=== PATIENT | male | born 1950 | race Native Hawaiian/Other Pacific Islander ===

== ENCOUNTER 2018-08-24 21:50 | Inpatient (IN) | payer OTHER, MEDICARE ==
[2018-08-24 21:50] VITALS: BMI 18.0
[2018-08-24] MEDS ORDERED: Sodium Chloride 0.9% 1,000 ML IV SCH (22:30)
[2018-08-24 22:40] LABS: BASO % 0.5 % (0.0-2.0); EOS % 0.8 % (0.0-4.0); HEMOGLOBIN 13.6 g/dL (12.0-18.0); LYMPH % 18.9 % (20.0-40.0); MEAN CELL VOLUME 93.5 fL (80.0-94.0); MEAN CORPUSCULAR HEMOGLOBIN 30.9 pg (27.0-31.0); MEAN CORPUSCULAR HGB CONC 33.1 g/dL (33.0-37.0); MEAN PLATELET VOLUME 7.4 fL (7.2-11.7); MONO # 0.5 K/uL (0.0-0.8); MONO % 8.7 % (0.0-10.0); NEUT # 3.9 K/uL (1.8-7.0); NEUT % 71.1 % (50.0-75.0); RBC 4.42 Mil/uL (4.40-5.90); RED CELL DISTRIBUTION WIDTH 13.1 % (11.5-14.5); WHITE BLOOD COUNT 5.5 K/uL (4.8-10.8)
[2018-08-24 22:48] LABS: PROTHROMBIN TIME 10.7 SECONDS (9.7-12.2)
--- NOTE | 2018-08-24 22:50 | C.PDOC ---
Time Seen by Provider: 08/24/18 22:03 Chief Complaint (Nursing): High Blood Pressure Past Medical History Vital Signs: Last Vital Signs Temp 98.4 F 08/24/18 21:56 Pulse 94 H 08/24/18 21:56 Resp 20 08/24/18 21:56 BP 161/87 H 08/24/18 21:56 Pulse Ox 100 08/24/18 21:56 - Medical History PMH: Depression, Hypercholesterolemia Denies: Chronic Kidney Disease - Social History Hx Alcohol Use: No Hx Substance Use: No - Immunization History Hx Tetanus Toxoid Vaccination: No Hx Influenza Vaccination: No Hx Pneumococcal Vaccination: No ED Course And Treatment - Laboratory Results Result Diagrams: 08/24/18 22:37 O2 Sat by Pulse Oximetry: 100 Disposition - Disposition Forms: [employer] (Romanian)
--- NOTE | 2018-08-24 22:51 | C.PDOC ---
History Of Present Illness 68 year old male presents to the ER after he woke up this morning and noticed he had slurred speech and later developed dizziness and right lip droop. Patient's checked his BP and found it to be 160 systolic, she gave him 5mg of norvasc which was not prescribed to him. Patient currently still complains of slurred speech but otherwise denies chest pain, SOB, palpitations, or dizziness at this time. Time Seen by Provider: 08/24/18 22:03 Chief Complaint (Nursing): High Blood Pressure History Per: Patient History/Exam Limitations: no limitations Onset/Duration Of Symptoms: Hrs Current Symptoms Are (Timing): Still Present Activity At Onset Of Symptoms: Other (Woke up with symptoms) Seizure Or Post-ictal Symptoms: None Possible Causative Factor(s): Other (not known) Recent travel outside of the [place]: No - Symptoms Of CVA Associated Symptoms: Impaired Speech (Slurred), Other (Right lip droop). denies: Seizure Activity, New Vision Deficit(Left), New Vision Deficit(Right), Decreased Ability To Walk, New Confusion Past Medical History Reviewed: Historical Data, Nursing Documentation, Vital Signs Vital Signs: Last Vital Signs Temp 98.4 F 08/24/18 21:56 Pulse 94 H 08/24/18 21:56 Resp 20 08/24/18 21:56 BP 161/87 H 08/24/18 21:56 Pulse Ox 100 08/24/18 22:50 - Medical History PMH: Depression, Hypercholesterolemia Denies: Chronic Kidney Disease Family History: States: Unknown Family Hx - Social History Hx Alcohol Use: No Hx Substance Use: No - Immunization History Hx Tetanus Toxoid Vaccination: No Hx Influenza Vaccination: No Hx Pneumococcal Vaccination: No Review Of Systems Constitutional: Negative for: Fever, Chills Cardiovascular: Negative for: Chest Pain, Palpitations Respiratory: Negative for: Cough, Shortness of Breath Gastrointestinal: Negative for: Nausea, Vomiting Genitourinary: Negative for: Dysuria, Hematuria Musculoskeletal: Negative for: Neck Pain, Back Pain Skin: Negative for: Rash, Jaundice Neurological: Positive for: Change in Speech (Slurred), Other (Right lip droop). Negative for: Dizziness Physical Exam - Physical Exam Appears: Non-toxic Skin: Normal Color, Warm, Dry Head: Atraumatic, Normacephalic Eye(s): bilateral: Normal Inspection, PERRL, EOMI Nose: Normal Oral Mucosa: Moist Neck: Normal, Supple Chest: Symmetrical, No Tenderness Cardiovascular: Rhythm Regular Respiratory: Normal Breath Sounds, No Rales, No Rhonchi, No Wheezing Gastrointestinal/Abdominal: Soft Back: No CVA Tenderness Extremity: Normal ROM (x4) Neurological/Psych: Oriented x3, Other (Right lip droop with smile asymmetry, finger to nose intact bilaterally, extremity strength 5/5 x4) Gait: Steady (w/ cane which he uses at baseline) ED Course And Treatment - Laboratory Results Result Diagrams: 08/24/18 22:37 08/24/18 23:03 ECG: Interpreted By Me, Viewed By Me ECG Rhythm: Sinus Rhythm ECG Interpretation: Normal Interpretation Of ECG: Normal axis, normal intervals, no ST/T wave changes, no ectope Rate From EC O2 Sat by Pulse Oximetry: 100 (Room air) Pulse Ox Interpretation: Normal - CT Scan/US CT Head Other Rad Studies (CT/US): Read By Radiologist, Radiology Report Reviewed CT/US Interpretation: EXAM: CT Head Without IV contrast. CLINICAL HISTORY: Facial droop. TECHNIQUE: Axial computed tomography images of the head/brain without intravenous contrast. 980 mGy-cm. COMPARISON: None provided. FI NDINGS: BRAIN. Note is made of a hemorrhage in the left gilmore radiata which measures 2.0 x 1.0 x 0.7 cm. 5 mm left thalamic lacunar infarct. Chronic periventricular and subcortical microvascular disease is seen. VENTRICLES: There is generalized parenchymal atrophy noted as demonstrated by symmetrical dilatation of ventricles and sulci. ORBITS: The orbits are unremarkable. SINUSES AND MASTOIDS: The paranasal sinuses and mastoid air cells are clear. BONES: No fracture. MISCELLANEOUS: Left frontal and parietal armida holes. IMPRESSION: 1. Elongated hemorrhage in the left gilmore radiata which measures 2.0 x 1.0 x 0.7 cm. 2. 5 mm left thalamic lacunar infarct. 3. Left frontal and parietal armida holes. 4. There is generalized parenchymal atrophy noted as demonstrated by symmetrical dilatation of ventricles and sulci. 5. Chronic periventricular and subcortical microvascular disease is seen. Discussed with Dr. LEDESMA 10-53 pm EST. . Electronically signed on Aug 24, 2018 10:57:22 PM EDT by: Tobias Robledo M.D., [facility] Certified By ABR & CBCCT. Fellowship Trained MRI and CT Specialist Critical Care Time - Critical Care Note Total Time (in mins): 30 Documented critical care: time excludes all time spent performing seperately billable procedures. NIHSS Stroke Scale 2 - Date/Time Evaluation Performed When Was NIHSS Performed: Code Stroke - How Severe is the Stroke Level of Consciousness: 0=Alert LOC to Questions: 0=Both comments correct LOC to commands: 0=Obeys both correctly Best Gaze: 0=Normal Visual: 0=No visual loss Facial: 1=Minor asymmetry Motor Arm - Left: 0=No drift Motor Arm - Right: 0=No drift Motor Leg - Left: 0=No drift Motor Leg - Right: 0=No drift Limb Ataxia: 0=Absent Sensory: 0=Normal Best Language: 0=No aphasia Dysarthia: 1=Mild to moderate slurring Extinction & Inattention (Neglect): 0=Normal, no object Score: 2 Medical Decision Making Medical Decision Making: Plan: Blood work CT head CXR EKG IV fluids Labetalol Code stroke called upon patient arrival due to slurred speech and facial droop. Patient to CT. Patient returned from CT. Results discussed with radiology- small hemorrhage to L gilmore radiata. Case discussed with Dr. Del Angel. Advised keeping BP between 130-150 systolic. HOB up to 30 degrees. 20mg labetalol ivp given for BP 160's systolic. Repeat BP 148 systolic. Case discussed with Dr. Campbell, patient's PMD. Accepts patient for admission. Disposition - Disposition Disposition: HOSPITALIZED Disposition Time: 23:11 Condition: FAIR - Clinical Impression Clinical Impression: Stroke, hemorrhagic - Scribe Statement The provider has reviewed the documentation as recorded by the Scribjanet Rodriguez All medical record entries made by the Ishibjanet were at my direction and personally dictated by me. I have reviewed the chart and agree that the record accurately reflects my personal performance of the history, physical exam, medical decision making, and the department course for this patient. I have also personally directed, reviewed, and agree with the discharge instructions and disposition.
[2018-08-24] MEDS ORDERED: Labetalol 25mg/5ml Syringe IVP STA (23:02)
[2018-08-24] MEDS ORDERED: Labetalol 5mg/ml (4ml) ONE (23:12)
[2018-08-24] MEDS ORDERED: Sodium Chloride 0.9% 1,000 ML ONE (23:12)
[2018-08-24 23:19] LABS: ALB/GLOB RATIO 1.2 (1.0-2.1); ALBUMIN 4.4 g/dL (3.5-5.0); ALT/SGPT 41 U/L (21-72); AST/SGOT 36 U/L (17-59); BLOOD UREA NITROGEN 23 mg/dL (9-20); CALCIUM 9.5 mg/dl (8.6-10.4); GFR NON-AFRICAN AMERICAN > 60; HDL CHOLESTEROL 73 mg/dL (30-70)
[2018-08-24 23:30] LABS: LDL CHOLESTEROL 101 mg/dL (0-129)
[2018-08-24] MEDS ORDERED: Enalaprilat 2.5 MG/2 ML IV STA (23:50)
[2018-08-25] MEDS ORDERED: Enalaprilat 2.5 MG/2 ML ONE (00:03)
--- NOTE | 2018-08-25 08:21 | RAD ---
Date of service: 08/24/2018 HISTORY: Code Stroke COMPARISON: 08/21/2018 FINDINGS: LUNGS: Diffuse increased interstitial lung markings. Right hilar prominence. Patchy increased markings at the left lung base. Upper lobe granulomatous changes. PLEURA: No significant pleural effusion identified, no pneumothorax apparent. CARDIOVASCULAR: Atherosclerotic calcification present in the aorta. Normal. OSSEOUS STRUCTURES: Postsurgical changes in the spine. VISUALIZED UPPER ABDOMEN: Normal. OTHER FINDINGS: None. IMPRESSION: Diffuse increased interstitial lung markings. Right hilar prominence. Patchy increased markings at the left lung base.
--- NOTE | 2018-08-25 08:25 | CT ---
Date of service: 08/24/2018 PROCEDURE: CT HEAD WITHOUT CONTRAST. HISTORY: code stroke bed 2 COMPARISON: 05/31/2016. TECHNIQUE: Axial computed tomography images were obtained through the head/brain without intravenous contrast. Radiation dose: Total exam DLP = 980.11 mGy-cm. This CT exam was performed using one or more of the following dose reduction techniques: Automated exposure control, adjustment of the mA and/or kV according to patient size, and/or use of iterative reconstruction technique. FINDINGS: HEMORRHAGE: There is a 2.0 x 0.6 x 0.9 cm acute parenchymal hematoma in the left gilmore radiata (deep frontal white matter). BRAIN: There are moderate chronic microangiopathic changes. There are old infarctions in the right basal ganglia and left medial thalamus. There is no mass, mass effect or abnormal extra-axial fluid collection. There is no territorial infarction. The midline sagittal structures are normal. VENTRICLES: There is mild age-related global parenchymal volume loss and proportionate enlargement of the ventricles and cortical sulci. CALVARIUM: There are left frontal and parietal armida holes. PARANASAL SINUSES: Predominantly clear. MASTOID AIR CELLS: Predominantly clear. OTHER FINDINGS: None. IMPRESSION: Acute parenchymal hematoma in the left gilmore radiata (deep frontal white matter measuring 2.0 x 0.6 x 0.9 cm. No evidence for significant surrounding edema, mass effect or midline shift. Additional chronic findings as described above. A preliminary report was provided by [employer].
--- NOTE | 2018-08-25 10:36 | CP.PCM.CON ---
Addendum entered and electronically signed by Masood Oliver DO 08/25/18 23:51: PGY1 Addendum to consult note: increased Crestor from 10mg to 20mg daily. Original Note: <Masood Oliver - Last Filed: 08/25/18 23:25> History of Present Illness - History of Present Illness History of Present Illness: PGY1 Neurology Consult Note for Dr. 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 Also, On 05/15/2016 he underwent a craniotomy at [facility] to evacuate a right subdural hematoma. Patient was referred to us by Dr. Campbell for complaint of slurred speech and dizziness that started on 08/25/18. CODE STROKE was called in the ED. CT of head without contrast was obtained in the ED and revealed a small bleeding of the left gilmore radiata of the frontal lobe. Patient otherwise denies any headache, any nausea, any blurred vision, weakness. From prior record: patient is now taking Smvastatin for a hypercholesterolemia. There is no history of DM, HPTN, heart disease. 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 He denies any cigarette smoking, any alcohol abuse, any known drug allergy. His mother in her 70's because of a colon cancer. His father had kidney disease. Review of Systems - Review of Systems All systems: reviewed and no additional remarkable complaints except Past Patient History - Past Medical History & Family History Past Medical History?: Yes - Past Social History Smoking Status: Never Smoked - CARDIAC Hx Hypercholesterolemia: Yes - PULMONARY Hx Respiratory Disorders: No - NEUROLOGICAL Hx Neurological Disorder: No - HEENT Hx HEENT Problems: Yes Hx Cataracts: Yes Other/Comment: BILATERAL LENS IMPLANTS 1993 - RENAL Hx Chronic Kidney Disease: No - ENDOCRINE/METABOLIC Hx Endocrine Disorders: No - HEMATOLOGICAL/ONCOLOGICAL Hx Blood Disorders: No Other/Comment: Giant Cell Tumor Thoracic Spine,Had Surgery. Radiation Done,Chemo for 7 Yrs Done. - INTEGUMENTARY Hx Dermatological Problems: No - MUSCULOSKELETAL/RHEUMATOLOGICAL Hx Falls: No - GASTROINTESTINAL Hx Gastrointestinal Disorders: No - GENITOURINARY/GYNECOLOGICAL Hx Genitourinary Disorders: No - PSYCHIATRIC Hx Substance Use: No - SURGICAL HISTORY Hx Surgeries: Yes Hx Eye Surgery: Yes (BILATERAL LENS IMPLANTS) Other/Comment: Portion of Lower of Left Lung Lobe Removed,Left Head 2 Graham hole Due to Subdural Hematoma ( [facility] Craniotomy )2016,Spinal Fusion 1998(Titanium Piotr in Thoracic region). - ANESTHESIA Hx Anesthesia: Yes Hx Anesthesia Reactions: No Hx Malignant Hyperthermia: No Has any member of the family had a problem w/ anesthesia?: Yes Meds Allergies/Adverse Reactions: Allergies Allergy/AdvReac Type Severity Reaction Status Date / Time No Known Allergies Allergy Verified 10/20/15 07:41 - Medications Medications: Current Medications Sodium Chloride (Sodium Chloride 0.9%) 1,000 mls @ 100 mls/hr IV .Q10H [facility] Last Admin: 08/24/18 23:10 Dose: 100 mls/hr Influenza Virus Vaccine (Fluzone Quad [id number]) 60 mcg IM .ONCE ONE Stop: 08/27/18 11:01 Pneumococcal Polyvalent Vaccine (Pneumovax 23 Vaccine) 0.5 ml IM .ONCE ONE Stop: 08/27/18 11:01 Physical Exam - Head Exam Head Exam: ATRAUMATIC, NORMAL INSPECTION, NORMOCEPHALIC - Neurological Exam Neurological exam: Alert, Oriented x3, Reflexes Normal - Expanded Neurological Exam Expanded Speech: Fluid Speech Cranial nerves: Facial Sensation: Normal, Gag Reflex: Normal, Nystagmus: Normal, Tongue Deviation: Normal Cerebellar Function: Finger to Nose: Abnormal Right Upper motor neuron: Pronator Drift: Abnormal Right DTR: Patellar Left: 3+, Patellar Right: 3+ Results - Vital Signs Recent Vital Signs: Last Vital Signs Temp 98.0 F 08/25/18 07:40 Pulse 73 08/25/18 07:40 Resp 20 08/25/18 07:40 BP 114/62 08/25/18 07:40 Pulse Ox 100 08/25/18 07:40 - Labs Result Diagrams: 08/24/18 22:37 08/24/18 23:03 Labs: Laboratory Results - last 24 hr 08/24/18 08/24/18 08/24/18 22:37 22:37 22:38 WBC 5.5 RBC 4.42 Hgb 13.6 Hct 41.3 MCV 93.5 MCH 30.9 MCHC 33.1 RDW 13.1 Plt Count 245 MPV 7.4 Neut % (Auto) 71.1 Lymph % (Auto) 18.9 L [place] % (Auto) 8.7 Eos % (Auto) 0.8 Baso % (Auto) 0.5 Neut # (Auto) 3.9 Lymph # (Auto) 1.0 [place] # (Auto) 0.5 Eos # (Auto) 0.0 Baso # (Auto) 0.0 PT 10.7 INR 1.0 APTT 22 Sodium Potassium Chloride Carbon Dioxide Anion Gap BUN Creatinine Est GFR ( Amer) Est GFR (Non-Af Amer) POC Glucose (mg/dL) Random Glucose Hemoglobin A1c 5.9 Calcium Total Bilirubin AST ALT Alkaline Phosphatase Troponin I Total Protein Albumin Globulin Albumin/Globulin Ratio Triglycerides Cholesterol LDL Cholesterol Direct HDL Cholesterol Blood Type Antibody Screen 08/24/18 08/24/18 08/24/18 22:45 22:54 23:03 WBC RBC Hgb Hct MCV MCH MCHC RDW Plt Count MPV Neut % (Auto) Lymph % (Auto) [place] % (Auto) Eos % (Auto) Baso % (Auto) Neut # (Auto) Lymph # (Auto) [place] # (Auto) Eos # (Auto) Baso # (Auto) PT INR APTT Sodium 142 Potassium 3.8 Chloride 99 Carbon Dioxide 33 H Anion Gap 15 BUN 23 H Creatinine 0.7 L Est GFR ( Amer) > 60 Est GFR (Non-Af Amer) > 60 POC Glucose (mg/dL) 104 Random Glucose 107 Hemoglobin A1c Calcium 9.5 Total Bilirubin 0.4 AST 36 ALT 41 Alkaline Phosphatase 37 L Troponin I 0.0120 Total Protein 8.0 Albumin 4.4 Globulin 3.6 Albumin/Globulin Ratio 1.2 Triglycerides 122 D Cholesterol 199 LDL Cholesterol Direct 101 HDL Cholesterol 73 H Blood Type A POSITIVE Antibody Screen Negative Assessment & Plan - Assessment and Plan (Free Text) Assessment: Hemorrhagic Stroke; cannot rule out underlying mass - Monitor BP - Place on TELEMETRY - NIHSS score=1 (pronator drift in right upper extremity) - I recommend MRI of brain with contrast; patient refusing contrast. MRI brain without contrast ordered. - I recommend CTA of head and neck; patient refused - Symptoms have mostly resolved with the exclusion of pronator drift on right upper extremity. - Hemodynamically stable Patient seen and case reviewed in detail with Dr. Mer Oliver PGY1 NIHSS Stroke Scale - Date/Time Evaluation Performed When Was NIHSS Performed: 24 hours post onset S/S - How Severe is the Stroke Level of Consciousness: 0=Alert LOC to Questions: 0=Both comments correct LOC to commands: 0=Obeys both correctly Best Gaze: 0=Normal Visual: 0=No visual loss Facial: 0=Normal Motor Arm - Left: 0=No drift Motor Arm - Right: 1=Drift noted before 10 sec Motor Leg - Left: 0=No drift Motor Leg - Right: 0=No drift Limb Ataxia: 0=Absent Sensory: 0=Normal Best Language: 0=No aphasia Dysarthia: 0=Normal articulation Extinction & Inattention (Neglect): 0=Normal, no object Score: 1 <Jose Del Angel - Last Filed: 08/29/18 04:45> Meds - Medications Medications: Current Medications Acetaminophen (Tylenol 325mg Tab) 650 mg PO Q6 PRN PRN Reason: Headache Docusate Sodium (Colace) 100 mg PO BID [facility] Last Admin: 08/28/18 18:15 Dose: 100 mg Losartan Potassium (Cozaar) 50 mg PO DAILY [facility] Rosuvastatin Calcium (Crestor) 20 mg PO HS [facility] Last Admin: 08/28/18 21:47 Dose: 20 mg Results - Vital Signs Recent Vital Signs: Last Vital Signs Temp 97.9 F 08/29/18 04:00 Pulse 79 08/29/18 04:00 Resp 20 08/29/18 04:00 BP 148/77 08/29/18 04:00 Pulse Ox 99 08/29/18 04:00 - Labs Result Diagrams: 08/24/18 22:37 08/24/18 23:03 Labs: Laboratory Results - last 24 hr 08/26/18 08/28/18 08/28/18 20:59 11:38 16:30 POC Glucose (mg/dL) 90 120 H 87 08/28/18 20:49 POC Glucose (mg/dL) 87 Attending/Attestation - Attestation I have personally seen and examined this patient.: Yes I have fully participated in the care of the patient.: Yes I have reviewed all pertinent clinical information: Yes Notes (Text): 08/29/18 04:44 I agree with the assessment and plan. Hemorrhagic stroke. Will evaluate for possible underlying mass. Thank you.
--- NOTE | 2018-08-25 17:39 | CARD ---
APPROVED REPORT Date of service: 08/24/2018 EKG Measurement Heart [id number] <Conclusion> Normal sinus rhythm Normal ECG
--- NOTE | 2018-08-25 21:03 | CP.PCM.HP ---
History of Present Illness - History of Present Illness History of Present Illness: This is a 68 years old [place] male who woke up on complaining of a slurred speech, dizziness and drooping of his right mouth corner with some right arm weakness. He denies any headache, any nausea, any blurred vision. A CT scan of the head in the ED at [facility] revealed a small bleeding of the left gilmore radiata of the frontal lobe. 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 He then received Interferon treatment at [facility] for 6 years and eta for the next 7 years. On 05/15/2016 he underwent a craniotomy at [facility] to evacuate a right subdural hematoma. He is now taking Smvastatin for a hypercholesterolemia. There is no history of DM, HPTN, heart disease. 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 He denies any cigarette smoking, any alcohol abuse, any known drug allergy. His mother in her 70's because of a colon cancer. His father had kidney disease. Present on Admission - Present on Admission Any Indicators Present on Admission: No Review of Systems - Musculoskeletal Musculoskeletal: Muscle Weakness Additional comments: Right arm weakness. - Neurological Neurological: Abnormal Speech, Dizziness, Focal Weakness, Weakness - Psychiatric Psychiatric: Anxiety Past Patient History - Past Medical History & Family History Past Medical History?: Yes - Past Social History Smoking Status: Never Smoked Alcohol: None Drugs: Denies Home Situation {Lives}: With Family Domestic Violence: Negative - CARDIAC Hx Hypercholesterolemia: Yes - PULMONARY Hx Respiratory Disorders: No - NEUROLOGICAL Hx Neurological Disorder: No HX Cerebrovascular Accident: Yes (Right subdural hematoma in 05/2016) - HEENT Hx HEENT Problems: Yes Hx Cataracts: Yes Other/Comment: BILATERAL LENS IMPLANTS 1993 - RENAL Hx Chronic Kidney Disease: No - ENDOCRINE/METABOLIC Hx Endocrine Disorders: No - HEMATOLOGICAL/ONCOLOGICAL Hx Blood Disorders: No Hx Chemotherapy: Yes Other/Comment: Giant Cell Tumor Thoracic Spine,Had Surgery. Radiation Done,Chemo for 7 Yrs Done. - INTEGUMENTARY Hx Dermatological Problems: No - MUSCULOSKELETAL/RHEUMATOLOGICAL Hx Falls: No - GASTROINTESTINAL Hx Gastrointestinal Disorders: No - GENITOURINARY/GYNECOLOGICAL Hx Genitourinary Disorders: No - PSYCHIATRIC Hx Substance Use: No - SURGICAL HISTORY Hx Surgeries: Yes (Caniotomy in 05/2016 at [facility] to evacuate a SDH,) Hx Eye Surgery: Yes (BILATERAL LENS IMPLANTS) Hx Orthopedic Surgery: Yes (Removal of a T8 giant cell tumor and thoracic spins fusion) Hx Pulmonary Surgery: Yes (Removal of a LLL giant cell tumor in 1999) Other/Comment: Portion of Lower of Left Lung Lobe Removed,Left Head 2 Marisa hole Due to Subdural Hematoma ( Marisa Hole Craniotomy )2015,Spinal Fusion 1998(Titanium Piotr in Thoracic region). - ANESTHESIA Hx Anesthesia: Yes Hx Anesthesia Reactions: No Hx Malignant Hyperthermia: No Has any member of the family had a problem w/ anesthesia?: Yes Meds Allergies/Adverse Reactions: Allergies Allergy/AdvReac Type Severity Reaction Status Date / Time No Known Allergies Allergy Verified 10/20/15 07:41 Physical Exam - Constitutional Appears: Well, No Acute Distress - Head Exam Head Exam: NORMAL INSPECTION - Eye Exam Eye Exam: Normal appearance - ENT Exam ENT Exam: Normal Exam Additional comments: Drooping of the right mouth corner and effacement of the right naso-labial fold. - Neck Exam Neck exam: Positive for: Normal Inspection - Respiratory Exam Respiratory Exam: Clear to Auscultation Bilateral, NORMAL BREATHING PATTERN - Cardiovascular Exam Cardiovascular Exam: REGULAR RHYTHM - GI/Abdominal Exam GI & Abdominal Exam: Normal Bowel Sounds, Soft - Rectal Exam Rectal Exam: Deferred - Exam Exam: NORMAL INSPECTION - Extremities Exam Additional comments: Mild right arm weakness. - Back Exam Back exam: NORMAL INSPECTION - Neurological Exam Neurological exam: Alert, Oriented x3 Additional comments: Mild right facial weakness and facial weakness, and slurred speech. - Psychiatric Exam Psychiatric exam: Anxious - Skin Skin Exam: Dry, Normal Color, Warm Results - Vital Signs Recent Vital Signs: Last Vital Signs Temp 97.8 F 08/25/18 15:52 Pulse 75 08/25/18 17:30 Resp 18 08/25/18 15:52 BP 137/72 08/25/18 15:52 Pulse Ox 97 08/25/18 15:52 - Labs Result Diagrams: 08/24/18 22:37 08/24/18 23:03 Labs: Laboratory Results - last 24 hr 08/24/18 08/24/18 08/24/18 22:37 22:37 22:38 WBC 5.5 RBC 4.42 Hgb 13.6 Hct 41.3 MCV 93.5 MCH 30.9 MCHC 33.1 RDW 13.1 Plt Count 245 MPV 7.4 Neut % (Auto) 71.1 Lymph % (Auto) 18.9 L [place] % (Auto) 8.7 Eos % (Auto) 0.8 Baso % (Auto) 0.5 Neut # (Auto) 3.9 Lymph # (Auto) 1.0 [place] # (Auto) 0.5 Eos # (Auto) 0.0 Baso # (Auto) 0.0 PT 10.7 INR 1.0 APTT 22 Sodium Potassium Chloride Carbon Dioxide Anion Gap BUN Creatinine Est GFR ( Amer) Est GFR (Non-Af Amer) POC Glucose (mg/dL) Random Glucose Hemoglobin A1c 5.9 Calcium Total Bilirubin AST ALT Alkaline Phosphatase Troponin I Total Protein Albumin Globulin Albumin/Globulin Ratio Triglycerides Cholesterol LDL Cholesterol Direct HDL Cholesterol Blood Type Antibody Screen 08/24/18 08/24/18 08/24/18 22:45 22:54 23:03 WBC RBC Hgb Hct MCV MCH MCHC RDW Plt Count MPV Neut % (Auto) Lymph % (Auto) [place] % (Auto) Eos % (Auto) Baso % (Auto) Neut # (Auto) Lymph # (Auto) [place] # (Auto) Eos # (Auto) Baso # (Auto) PT INR APTT Sodium 142 Potassium 3.8 Chloride 99 Carbon Dioxide 33 H Anion Gap 15 BUN 23 H Creatinine 0.7 L Est GFR ( Amer) > 60 Est GFR (Non-Af Amer) > 60 POC Glucose (mg/dL) 104 Random Glucose 107 Hemoglobin A1c Calcium 9.5 Total Bilirubin 0.4 AST 36 ALT 41 Alkaline Phosphatase 37 L Troponin I 0.0120 Total Protein 8.0 Albumin 4.4 Globulin 3.6 Albumin/Globulin Ratio 1.2 Triglycerides 122 D Cholesterol 199 LDL Cholesterol Direct 101 HDL Cholesterol 73 H Blood Type A POSITIVE Antibody Screen Negative Assessment & Plan (1) Stroke, hemorrhagic Assessment and Plan: Observe, Neurological evaluation, repeat CT scan. Control BP. Status: Acute - Date & Time Date: 08/25/18 Time: 13:45 Decision To Admit - Pt Status Changed To: Hospital Disposition Of: Inpatient - Admit Certification Admit to Inpatient:: After my assessment, the patient will require hospitalization for at least two midnights. This is because of the severity of symptoms shown, intensity of services needed, and/or the medical risk in this patient being treated as an outpatient. - InPatient: Physician Admission Certification:: After my assessments, the patient requires hospitalization for at least 2 midnights. - . Bed Request Type: Telemetry Admitting Physician: Tobias Campbell
[2018-08-26 00:23] VITALS: RESP 20
--- NOTE | 2018-08-26 23:50 | CP.PCM.PN ---
Subjective - Date & Time of Evaluation Date of Evaluation: 08/26/18 Time of Evaluation: 16:45 - Subjective Subjective: Patient has no complaint, was evaluated by Neurologist. Still with mild right facial weakness and right arm weakness. No headache, no more speech slurring. A brain MRI is ordered. Objective - Vital Signs/Intake and Output Vital Signs (last 24 hours): Temp Pulse Resp BP Pulse Ox 98.2 F 74 20 130/68 98 08/26/18 15:05 08/26/18 17:30 08/26/18 15:05 08/26/18 15:05 08/26/18 15:05 - Medications Medications: Current Medications Acetaminophen (Tylenol 325mg Tab) 650 mg PO Q6 PRN PRN Reason: Headache Docusate Sodium (Colace) 100 mg PO BID [facility] Last Admin: 08/26/18 18:23 Dose: 100 mg Influenza Virus Vaccine (Fluzone Quad [id number]) 60 mcg IM .ONCE ONE Stop: 08/27/18 11:01 Pneumococcal Polyvalent Vaccine (Pneumovax 23 Vaccine) 0.5 ml IM .ONCE ONE Stop: 08/27/18 11:01 Rosuvastatin Calcium (Crestor) 20 mg PO HS [facility] Last Admin: 08/26/18 21:49 Dose: 20 mg - Labs Labs: 08/24/18 22:37 08/24/18 23:03 PT 10.7 SECONDS (9.7-12.2) 08/24/18 22:37 INR 1.0 08/24/18 22:37 APTT 22 SECONDS (21-34) 08/24/18 22:37 - Constitutional Appears: Well, No Acute Distress - Head Exam Head Exam: NORMAL INSPECTION - Eye Exam Eye Exam: Normal appearance - ENT Exam ENT Exam: Normal Exam - Neck Exam Neck Exam: Normal Inspection - Respiratory Exam Respiratory Exam: Clear to Ausculation Bilateral, NORMAL BREATHING PATTERN - Cardiovascular Exam Cardiovascular Exam: REGULAR RHYTHM - GI/Abdominal Exam GI & Abdominal Exam: Soft, Normal Bowel Sounds - Rectal Exam Rectal Exam: Deferred - Extremities Exam Extremities Exam: Normal Inspection - Back Exam Back Exam: NORMAL INSPECTION - Neurological Exam Neurological Exam: Alert, Awake, Oriented x3 Additional comments: Mild right facial weakness andminimal right arm weakness. - Psychiatric Exam Psychiatric exam: Anxious - Skin Skin Exam: Dry, Intact, Normal Color Assessment and Plan (1) Stroke, hemorrhagic Assessment & Plan: For a brain MRI. Status: Acute
[2018-08-27] MEDS ORDERED: Pneumococcal 23-Valent Vaccine IM ONE (11:00)
[2018-08-27] MEDS ORDERED: Influenza Vaccine 60 MCG/0.5 ML SYR (3 yr & up) IM ONE (11:00)
[2018-08-28] MEDS ORDERED: Labetalol 5 mg/ml Inj 20ML IVP STA (00:49)
--- NOTE | 2018-08-28 11:22 | MRI ---
Date of service: 08/28/2018 PROCEDURE: MRI BRAIN WITHOUT CONTRAST HISTORY: Cerebral bleed, r/o brain tumor COMPARISON: Noncontrast head CT from 08/24/2018 TECHNIQUE: Multiplanar, multisequence MR images of the brain were obtained without intravenous contrast enhancement. FINDINGS: HEMORRHAGE: There is redemonstration of linear configuration 9 x 10 mm early subacute hemorrhage mild surrounding vasogenic edema in the left gilmore radiata. DWI: No evidence of an acute or early subacute infarction. BRAIN PARENCHYMA: There are old lacunar infarctions in the right gilmore radiata and basal ganglia. There is no mass, mass effect or abnormal extra-axial fluid collection. The midline sagittal structures are normal. There are moderate chronic microangiopathic changes. There is an old infarction in the left lateral frontoparietal cortex. VENTRICLES: There is mild age-related global parenchymal volume loss and proportionate enlargement of the ventricles and cortical sulci. CRANIUM: There is normal bone marrow signal pattern. ORBITS: Grossly unremarkable. PARANASAL SINUSES/MASTOIDS: Mild mucosal thickening in the paranasal sinuses. The mastoid air cells are predominantly clear. VASCULAR SYSTEM: There are normal signal voids in the larger intracranial arteries. OTHER FINDINGS: None. IMPRESSION: No acute intracranial abnormality. Redemonstration of 9 x 10 mm early subacute hemorrhage with mild surrounding vasogenic edema in the left gilmore radiata. Old lacunar infarctions in the right gilmore radiata and basal ganglia. Moderate chronic microangiopathic changes and mild age-related global parenchymal volume loss.
--- NOTE | 2018-08-28 21:34 | CP.PCM.PN ---
Subjective - Date & Time of Evaluation Date of Evaluation: 08/28/18 Time of Evaluation: 13:00 - Subjective Subjective: Patient still with mild right facial weakness and right arm weakness. Head MRI reveals a subacute hemorrhage of the left gilmore radiata, and old lacunar infarcts of the right gilmore radiata and basal ganglia. Patient is being evaluated for acute rehabilitation. To start Losartan for an elevated BP. Objective - Vital Signs/Intake and Output Vital Signs (last 24 hours): Temp Pulse Resp BP Pulse Ox 97.3 F L 80 20 162/89 H 98 08/28/18 15:00 08/28/18 15:00 08/28/18 15:00 08/28/18 15:00 08/28/18 15:00 Intake and Output: 08/28/18 08/29/18 18:59 06:59 Output Total 200 Balance -200 - Medications Medications: Current Medications Acetaminophen (Tylenol 325mg Tab) 650 mg PO Q6 PRN PRN Reason: Headache Docusate Sodium (Colace) 100 mg PO BID [facility] Last Admin: 08/28/18 18:15 Dose: 100 mg Losartan Potassium (Cozaar) 50 mg PO DAILY [facility] Rosuvastatin Calcium (Crestor) 20 mg PO HS [facility] Last Admin: 08/27/18 21:46 Dose: 20 mg - Labs Labs: 08/24/18 22:37 08/24/18 23:03 PT 10.7 SECONDS (9.7-12.2) 08/24/18 22:37 INR 1.0 08/24/18 22:37 APTT 22 SECONDS (21-34) 08/24/18 22:37 - Constitutional Appears: Well, No Acute Distress - Head Exam Head Exam: NORMAL INSPECTION - Eye Exam Eye Exam: Normal appearance - ENT Exam Additional comments: Mild left facial weakness. - Neck Exam Neck Exam: Normal Inspection - Respiratory Exam Respiratory Exam: Clear to Ausculation Bilateral, NORMAL BREATHING PATTERN - Cardiovascular Exam Cardiovascular Exam: REGULAR RHYTHM - GI/Abdominal Exam GI & Abdominal Exam: Soft, Normal Bowel Sounds - Rectal Exam Rectal Exam: Deferred - Extremities Exam Extremities Exam: Normal Inspection - Back Exam Back Exam: NORMAL INSPECTION - Neurological Exam Neurological Exam: Alert, Awake, Oriented x3 Additional comments: Weakness of the right arm. - Psychiatric Exam Psychiatric exam: Anxious - Skin Skin Exam: Dry, Intact, Normal Color, Warm Assessment and Plan (1) Stroke, hemorrhagic Assessment & Plan: For acute rehab Status: Acute (2) Hypertension Assessment & Plan: Start Losartan 50 mg PO qd. Status: Acute
--- NOTE | 2018-08-29 23:38 | CP.PCM.PN ---
Subjective - Date & Time of Evaluation Date of Evaluation: 08/29/18 Time of Evaluation: 20:00 - Subjective Subjective: Patient with no complaint of headache, dizziness, blurred vision, but still with mild weakness of the right face, right arm and right leg. Awaiting transfer to acute rehabilitation. Objective - Vital Signs/Intake and Output Vital Signs (last 24 hours): Temp Pulse Resp BP Pulse Ox 97.8 F 83 20 137/78 100 08/29/18 15:15 08/29/18 17:30 08/29/18 15:15 08/29/18 15:15 08/29/18 15:15 - Medications Medications: Current Medications Acetaminophen (Tylenol 325mg Tab) 650 mg PO Q6 PRN PRN Reason: Headache Docusate Sodium (Colace) 100 mg PO BID [facility] Last Admin: 08/29/18 18:16 Dose: 100 mg Losartan Potassium (Cozaar) 50 mg PO DAILY [facility] Last Admin: 08/29/18 10:05 Dose: 50 mg Rosuvastatin Calcium (Crestor) 20 mg PO HS [facility] Last Admin: 08/29/18 21:37 Dose: 20 mg - Labs Labs: 08/24/18 22:37 08/24/18 23:03 PT 10.7 SECONDS (9.7-12.2) 08/24/18 22:37 INR 1.0 08/24/18 22:37 APTT 22 SECONDS (21-34) 08/24/18 22:37 - Constitutional Appears: Well, No Acute Distress - Head Exam Head Exam: NORMOCEPHALIC - Eye Exam Eye Exam: Normal appearance - ENT Exam Additional comments: Mild right facial weakness. - Neck Exam Neck Exam: Normal Inspection - Respiratory Exam Respiratory Exam: Clear to Ausculation Bilateral, NORMAL BREATHING PATTERN - Cardiovascular Exam Cardiovascular Exam: REGULAR RHYTHM - GI/Abdominal Exam GI & Abdominal Exam: Soft, Normal Bowel Sounds - Rectal Exam Rectal Exam: Deferred - Extremities Exam Additional comments: Mild right arm weakness and right leg weakness. - Back Exam Back Exam: NORMAL INSPECTION - Neurological Exam Neurological Exam: Alert, Awake, Oriented x3 - Psychiatric Exam Psychiatric exam: Anxious - Skin Skin Exam: Dry, Intact, Normal Color, Warm Assessment and Plan (1) Stroke, hemorrhagic Assessment & Plan: Awaiting discharge to acute rehabilitation. Status: Acute (2) Hypertension Assessment & Plan: To continue LOsartan 50 mg PO qd. Status: Acute
--- NOTE | 2018-08-30 18:53 | CP.PCM.PN ---
Subjective - Date & Time of Evaluation Date of Evaluation: 08/30/18 Time of Evaluation: 13:45 - Subjective Subjective: Patient has no new complaint. Awaiting transfer to subacute rehabilitation. Objective - Vital Signs/Intake and Output Vital Signs (last 24 hours): Temp Pulse Resp BP Pulse Ox 98.4 F 80 20 125/81 100 08/30/18 15:20 08/30/18 15:20 08/30/18 15:20 08/30/18 15:20 08/30/18 15:20 Intake and Output: 08/30/18 08/30/18 06:59 18:59 Output Total 400 Balance -400 - Medications Medications: Current Medications Acetaminophen (Tylenol 325mg Tab) 650 mg PO Q6 PRN PRN Reason: Headache Docusate Sodium (Colace) 100 mg PO BID [facility] Last Admin: 08/30/18 10:03 Dose: 100 mg Losartan Potassium (Cozaar) 50 mg PO DAILY [facility] Last Admin: 08/30/18 10:03 Dose: 50 mg Rosuvastatin Calcium (Crestor) 20 mg PO HS [facility] Last Admin: 08/29/18 21:37 Dose: 20 mg - Labs Labs: 08/24/18 22:37 08/24/18 23:03 PT 10.7 SECONDS (9.7-12.2) 08/24/18 22:37 INR 1.0 08/24/18 22:37 APTT 22 SECONDS (21-34) 08/24/18 22:37 - Constitutional Appears: No Acute Distress - Head Exam Head Exam: NORMAL INSPECTION - Eye Exam Eye Exam: Normal appearance - ENT Exam ENT Exam: Normal Exam Additional comments: Mild right facial weakness. - Neck Exam Neck Exam: Normal Inspection - Respiratory Exam Respiratory Exam: Clear to Ausculation Bilateral, NORMAL BREATHING PATTERN - Cardiovascular Exam Cardiovascular Exam: REGULAR RHYTHM - GI/Abdominal Exam GI & Abdominal Exam: Soft, Normal Bowel Sounds - Rectal Exam Rectal Exam: Deferred - Extremities Exam Additional comments: Mild right sided weakness. - Back Exam Back Exam: NORMAL INSPECTION - Neurological Exam Neurological Exam: Alert, Awake, Oriented x3 - Psychiatric Exam Psychiatric exam: Anxious - Skin Skin Exam: Intact, Normal Color, Warm Assessment and Plan (1) Stroke, hemorrhagic Assessment & Plan: For acute rehabilitation. Status: Acute (2) Hypertension Assessment & Plan: To continue Losartan 50 mg PO qd. Status: Acute
[2018-08-31 04:22] VITALS: TEMP 97.5
[2018-08-31 08:46] VITALS: BP 127/76; PULSE 80; O2SAT 100
--- NOTE | 2018-09-01 10:06 | CP.PCM.DIS ---
Provider - Provider Date of Admission: 08/24/18 23:11 Attending physician: Tobias Campbell MD Primary care physician: Tobias Campbell M.D. Consults: Butch Del Angel ( Neurology). Time Spent in preparation of Discharge (in minutes): 45 Diagnosis - Discharge Diagnosis (1) Stroke, hemorrhagic Status: Acute (2) Hypertension Status: Acute Hospital Course - Lab Results Lab Results: Most Recent Lab Values WBC 5.5 K/uL (4.8-10.8) 08/24/18 22:37 RBC 4.42 Mil/uL (4.40-5.90) 08/24/18 22:37 Hgb 13.6 g/dL (12.0-18.0) 08/24/18 22:37 Hct 41.3 % (35.0-51.0) 08/24/18 22:37 MCV 93.5 fL (80.0-94.0) 08/24/18 22:37 MCH 30.9 pg (27.0-31.0) 08/24/18 22:37 MCHC 33.1 g/dL (33.0-37.0) 08/24/18 22:37 RDW 13.1 % (11.5-14.5) 08/24/18 22:37 Plt Count 245 K/uL (130-400) 08/24/18 22:37 MPV 7.4 fL (7.2-11.7) 08/24/18 22:37 Neut % (Auto) 71.1 % (50.0-75.0) 08/24/18 22:37 Lymph % (Auto) 18.9 % (20.0-40.0) L 08/24/18 22:37 [place] % (Auto) 8.7 % (0.0-10.0) 08/24/18 22:37 Eos % (Auto) 0.8 % (0.0-4.0) 08/24/18 22:37 Baso % (Auto) 0.5 % (0.0-2.0) 08/24/18 22:37 Neut # (Auto) 3.9 K/uL (1.8-7.0) 08/24/18 22:37 Lymph # (Auto) 1.0 K/uL (1.0-4.3) 08/24/18 22:37 [place] # (Auto) 0.5 K/uL (0.0-0.8) 08/24/18 22:37 Eos # (Auto) 0.0 K/uL (0.0-0.7) 08/24/18 22:37 Baso # (Auto) 0.0 K/uL (0.0-0.2) 08/24/18 22:37 PT 10.7 SECONDS (9.7-12.2) 08/24/18 22:37 INR 1.0 08/24/18 22:37 APTT 22 SECONDS (21-34) 08/24/18 22:37 Sodium 142 mmol/L (132-148) 08/24/18 23:03 Potassium 3.8 mmol/L (3.6-5.2) 08/24/18 23:03 Chloride 99 mmol/L (98-107) 08/24/18 23:03 Carbon Dioxide 33 mmol/L (22-30) H 08/24/18 23:03 Anion Gap 15 (10-20) 08/24/18 23:03 BUN 23 mg/dL (9-20) H 08/24/18 23:03 Creatinine 0.7 mg/dL (0.8-1.5) L 08/24/18 23:03 Est GFR ( Amer) > 60 08/24/18 23:03 Est GFR (Non-Af Amer) > 60 08/24/18 23:03 POC Glucose (mg/dL) 82 mg/dL (65-110) 08/30/18 11:40 Random Glucose 107 mg/dL (75-110) 08/24/18 23:03 Hemoglobin A1c 5.9 % (4.2-6.5) 08/24/18 22:38 Calcium 9.5 mg/dl (8.6-10.4) 08/24/18 23:03 Total Bilirubin 0.4 mg/dL (0.2-1.3) 08/24/18 23:03 AST 36 U/L (17-59) 08/24/18 23:03 ALT 41 U/L (21-72) 08/24/18 23:03 Alkaline Phosphatase 37 U/L (38-126) L 08/24/18 23:03 Troponin I 0.0120 ng/mL (0.00-0.120) 08/24/18 23:03 Total Protein 8.0 g/dL (6.3-8.3) 08/24/18 23:03 Albumin 4.4 g/dL (3.5-5.0) 08/24/18 23:03 Globulin 3.6 gm/dL (2.2-3.9) 08/24/18 23:03 Albumin/Globulin Ratio 1.2 (1.0-2.1) 08/24/18 23:03 Triglycerides 122 mg/dL (0-149) D 08/24/18 23:03 Cholesterol 199 mg/dL (0-199) 08/24/18 23:03 LDL Cholesterol Direct 101 mg/dL (0-129) 08/24/18 23:03 HDL Cholesterol 73 mg/dL (30-70) H 08/24/18 23:03 Blood Type A POSITIVE 08/24/18 22:54 Antibody Screen Negative 08/24/18 22:54 - Hospital Course Hospital Course: 68 years old male complaining of a dizziness, a slurred speech, drooping of his right mouth corner, mils\d right arm weakness on awakening on 08/24/2018. His gave him Amlodipine 5 mg because his BP at that time was 160/80 mmHg. In the ED a head CT rerealed a small hemorrhage measuring 2cmmx 0.6cmx0.9cm in the left gilmore radiata of the frontal lobe. He denies any headache, blurred vision, nausea, vomiting. 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 In 2016, he underwent a craniotomy to evacuate an acute subdural hematoma at [facility] resulting from a fall. He has been for a hypercholesterolemia with Simvastatin. There is no previous history of HPTN, CAD, DM, cardiac arrhythmia. The patient was evaluated by Dr Del Angel ( Neurologist) who ordered a brain MRI to r/o any brain tumor. An MRI of the brain with contrast on 08/28/2018 revealed a subacute linear hemorrhage 0.9 x 1.0 cm with mild surrounding edema in the left gilmore radiata. The patient was started on Losartan 50 mg PO qd for an elevated BP, then Losartan 100 mg PO qd. The speech slurring improved spontaneously. The right facial and right arm weakness also improved. He was transferred to the acute Rehabilitation Center at [facility] on 08/31/2018 in a stable condition. He will continue to take Crestor 20 mg PO ad, Losartan 100 mg PO qd. - Date & Time of H&P Date of H&P: 08/25/18 Discharge Exam - Head Exam Head Exam: NORMAL INSPECTION - Eye Exam Eye Exam: Normal appearance Pupil Exam: NORMAL ACCOMODATION - ENT Exam Additional comments: Mild right facial weakness. - Neck Exam Neck exam: Normal Inspection - Respiratory Exam Respiratory Exam: Clear to PA & Lateral - Cardiovascular Exam Cardiovascular Exam: REGULAR RHYTHM - GI/Abdominal Exam GI & Abdominal Exam: Normal Bowel Sounds, Soft - Rectal Exam Rectal Exam: Deferred - Exam Exam: NORMAL INSPECTION - Extremities Exam Additional comments: Mild weakness of the right arm. - Back Exam Back exam: NORMAL INSPECTION - Neurological Exam Neurological exam: Alert, Oriented x3 Additional comments: Mild weakness of the right face and the right arm. - Psychiatric Exam Psychiatric exam: Anxious - Skin Skin Exam: Intact, Normal Color, Warm Discharge Plan - Follow Up Plan Condition: FAIR Disposition: REHAB FACILITY/REHAB UNIT Instructions: DASH Diet, Low Salt Diet, Hemorrhagic Stroke, Hypertension (DC) Referrals: Jose Del Angel MD [Staff Provider] - Tobias Campbell MD [Staff Provider] - Clinical Quality Measures - CQM - Stroke Antithrombotic Prescribed: Medical Contraindication Present Contranindication/Reason for not providing: Risk for Bleeding Anticoagulation Prescribed for Atrial Flutter, Atrial Fibrillation and History of:: Not Applicable Contranindication/Reason for not providing: Risk for Bleeding Statin prescribed: Yes - CQM - Heart Failure Will be discharged to: [facility] Follow Up Date (must be within 7 days from discharge): 10/06/18 - Date & Time of Discharge Summary Date of Discharge Summary: 09/01/18 Time of Discharge Summary: 10:11
== END 2018-08-31 13:26 | DRG 66 ==
LOC: C.ER 21:50 → C.9E 23:11 → C.6T 08-25 00:02
PROVIDERS: ADMIT Internal Medicine Cardiovascular Disease; ATTEND Internal Medicine Cardiovascular Disease
DX: I63.59 Cerebral infarction due to unspecified occlusion or stenosis of other cerebral artery (principal); I10 Essential (primary) hypertension; R47.81 Slurred speech; R29.810 Facial weakness; R29.701 NIHSS score 1; E78.00 Pure hypercholesterolemia, unspecified; Z96.1 Presence of intraocular lens; Z86.73 Personal history of transient ischemic attack (TIA), and cerebral infarction without residual deficits; Z92.3 Personal history of irradiation; Z98.1 Arthrodesis status; Z80.0 Family history of malignant neoplasm of digestive organs; Z84.1 Family history of disorders of kidney and ureter